=== PATIENT | female | born 1940 | race Caucasian/White ===

== ENCOUNTER 2016-09-18 09:56 | Inpatient (IN) ==
[2016-09-18] MEDS ORDERED: NS 1,000 ML IV ONE (10:01)
[2016-09-18] MEDS ORDERED: LASIX IV ONE ×2 (10:01→12:35)
[2016-09-18] MEDS ORDERED: VANCOMYCIN 1 GM/NS 250 ML IV ONE (10:01)
--- NOTE | 2016-09-18 10:04 | PROVIDER DOCUMENTATION ---
HPI-Respiratory General - General Source: patient Unable to obtain history due to:: urgency - History of Present Illness-Resp Onset/Duration: reports: 1/2 hour ago Timing: reports: still present Cough Quality/Degree: reports: no cough Episode Frequency: no prior episodes Modifying Factors: improves with: oxygen Similar Symptoms Previously?: No Recently seen or treated by another doctor?: No <Samnatha Quezada - Last Filed: 09/18/16 09:58> <Leon Venegas - Last Filed: 09/18/16 10:50> - General Stated Complaint: respiratory arrest Time Seen by Provider: 09/18/16 09:58 Allergies/Adverse Reactions: Patient Allergies Allergy/AdvReac Type Severity Reaction Status Date / Time No Known Allergies Allergy Verified 08/06/16 17:40 Home Medications: Albuterol Sulfate Inhaler [Ventolin Hfa] 2 puff INH [id number] 10/20/12 Paroxetine HCl [Paxil] 40 mg PO DAILY 10/20/12 Tiotropium Dickerson Inhaler [Spiriva] 1 puff INH RTDAILY 10/20/12 Levothyroxine [Synthroid] 137 microgm PO DAILY 11/04/15 Furosemide [Lasix] 40 mg PO DAILY 03/20/16 - History of Present Illness-Resp Nature of Presenting Problem: Pt is a 76 yof who came to the ED via EMS from [facility]. Pt was in respiratory arrest for 45 minutes before EMS got there. Pt was taking shallow breaths. Pt has a port on the upper right side of her chest. Pt has a rash on her chest and right breast. (Samantha Quezada) Review of Systems - Adult - REVIEW OF SYSTEMS - ADULT Constitutional: denies: chills, fever Eyes: denies: blurred vision Ears, Nose, Mouth & Throat: denies: nose pain, loose teeth Cardiovascular: reports: edema, heart murmur. denies: irregular heart rate, orthopnea, poor circulation Respiratory: reports: shortness of breath. denies: chronic cough, dyspnea on exertion, hemoptysis Gastrointestinal: denies: difficulty swallowing, frequent heartburn Genitourinary: reports: no symptoms reported Musculoskeletal: reports: no symptoms reported Integumentary: reports: no symptoms reported Neurological: reports: no symptoms reported Psychiatric: reports: no symptoms reported Endocrine: reports: no symptoms reported Hematologic/Lymphatic: reports: no symptoms reported Allergic/Immunologic: reports: no symptoms reported All Other Systems: Reviewed and Negative <Samantha Quezada - Last Filed: 09/18/16 09:58> Past History - Adult - PAST MEDICAL HISTORY-ADULT Major Childhood Illnesses: reports: denies history Cardiovascular: reports: A-Fib, CHF, HTN Respiratory: reports: COPD Gastrointestinal: reports: GERD Obstetrical/Gynecological: reports: denies history Genitourinary: reports: denies history Musculoskeletal: reports: denies history Neurological: reports: denies history Psychiatric: reports: anxiety Endocrine/Immune: reports: thyroid disorder Other Conditions: reports: denies history - PRIOR SURGERIES/PROCEDURES Surgical/Procedure History: reports: cholecystectomy, hysterectomy, joint replacement - IMMUNIZATION STATUS Childhood Immunizations: See Nurse Assessment Flu Vaccine: See Nurse Assessment - FAMILY HISTORY Family History: reviewed, not pertinent <Samantha Quezada Last Filed: 09/18/16 09:58> Physical Exam-General - PHYSICAL EXAM-ADULT Initial Vital Signs Reviewed: Yes - CONSTITUTIONAL General Appearance: mild distress, cachetic - EYES Eyes: PERRL/EOMI, pink conjunctivae, other (pupils fixed midrange) - HEAD, EARS, NOSE, MOUTH & THROAT HENMT: normocephalic/atraumatic, moist mucous membranes, normal ENT inspection - NECK Neck: non-tender, full range of motion, normal inspection - RESPIRATORY Respiratory: chest non-tender, normal breath sounds, rhonchi - CARDIOVASCULAR Cardiovascular: normal peripheral pulses, regular rate, rhythm, no edema - GASTROINTESTINAL (ABDOMEN) Abdominal Exam: normal bowel sounds, non tender, soft - LYMPHATIC Lymphatic: no adenopathy - MUSCULOSKELETAL Back Exam: normal inspection, no CVA tenderness, no vertebral tenderness Extremity: normal gait, pedal edema (1 + edema in legs. Edema in left arm) - SKIN Integumentary: warm/dry, rash (right side of chest), swelling - NEUROLOGIC Neurologic: grossly normal, no motor/sensory deficits - PSYCHIATRIC Psych/Mental Status: disoriented x 3 <Samantha Quezada - Last Filed: 09/18/16 09:58> Progress <Samantha Quezada Last Filed: 09/18/16 09:58> - REASSESSMENT Reassessment #1 Time Reassessed: 10:33 (ABG shows significant respiratory acidsosis with CO2 retention and over-oxygenation. Will decrease the FiO2 and increase the rate on BiPAP. Will need admission) Status: improving - EKG 1 Time of EKG reading by physician:: 10:34 EKG Read and Signed by:: Leon Venegas EKG Interpretation (*Must complete 3 of following elements*): Abnormal Rate: 91 Rhythm: nsr Junction: normal QRS: other (low voltage, poor r-wave progression) ND Interval: normal ST Wave: non-specific ST changes Prior EKG Comparison: no prior EKG Comments: artifact present - XRAY 1 XRAY Study: Chest Impression: Abnormal (CM with pulmonary edema, bilateral pleural effusions, right worse than left and pulmonary edema.), See EMR Report Comparison with other Films: changes noted - CONSULTS/PCP/HOSPITALIST Notification #1 *Consult/PCP/Hospitalist*: Hospitalist on duty paged for admission at 1032 Time Discussed: 10:48 Reason/Comments: Dr. Manuel will see patient Consult Disposition: Will see in ED <Leon Venegas - Last Filed: 09/18/16 10:50> - PLAN OF CARE/RESULTS Progress/Plan/Lab Results: Laboratory Results 09/18/16 09/18/16 09/18/16 10:00 10:00 10:00 WBC 20.61 H RBC 4.33 Hgb 12.6 Hct 43.1 MCV 99.5 H MCH 29.1 MCHC 29.2 L RDW Std Deviation 14.9 H Plt Count 342 MPV 9.2 Immature Gran % (Auto) 1.1 H Neut % (Auto) 72.9 Lymph % (Auto) 21.7 [place] % (Auto) 3.8 Eos % (Auto) 0.3 Baso % (Auto) 0.2 Immature Gran # (Auto) 0.22 H Neut # 15.03 H Lymph # 4.48 H [place] # 0.78 H Eos # 0.06 Baso # 0.04 PT 21.8 H INR 2.04 Specimen Type Sample Site pH pCO2 pO2 HCO3 Base Excess Oxyhemoglobin ABG O2 Sat (Calculated) ABG O2 Saturation ABG Carboxyhemoglobin ABG Methemoglobin Luther Test A-a O2 Difference Total Hemoglobin Lactate Blood Gas Modality FiO2 % Inspiratory BiPAP Expiratory BiPAP Sodium 138 Potassium 4.4 Chloride 89 L Carbon Dioxide 40 H Anion Gap 9 BUN 20 Creatinine 0.7 Estimated GFR/1.73 m2 > 60 BUN/Creatinine Ratio 29 Glucose 197 H Calculated Osmolality 284 Calcium 8.6 L Total Bilirubin 0.15 L AST 37 H ALT 18 Alkaline Phosphatase 111 H Troponin T Total Protein 5.8 L Albumin 3.0 L Globulin 2.8 Albumin/Globulin Ratio 1.1 Plasma Lactate Urine Source Urine Color Urine Turbidity Urine pH Ur Specific [place] Urine Protein Ur Glucose (Stick) Ur Ketones (Stick) Urine Blood Urine Nitrite Urine Bilirubin Urobilinogen Dipstick Urine Leukocytes Urine WBC (Auto) Urine RBC (Auto) U Epithel Cells (Auto) Urine Bacteria (Auto) 09/18/16 09/18/16 09/18/16 10:00 10:04 10:08 WBC RBC Hgb Hct MCV MCH MCHC RDW Std Deviation Plt Count MPV Immature Gran % (Auto) Neut % (Auto) Lymph % (Auto) [place] % (Auto) Eos % (Auto) Baso % (Auto) Immature Gran # (Auto) Neut # Lymph # [place] # Eos # Baso # PT INR Specimen Type Sample Site pH pCO2 pO2 HCO3 Base Excess Oxyhemoglobin ABG O2 Sat (Calculated) ABG O2 Saturation ABG Carboxyhemoglobin ABG Methemoglobin Luther Test A-a O2 Difference Total Hemoglobin Lactate Blood Gas Modality FiO2 % Inspiratory BiPAP Expiratory BiPAP Sodium Potassium Chloride Carbon Dioxide Anion Gap BUN Creatinine Estimated GFR/1.73 m2 BUN/Creatinine Ratio Glucose Calculated Osmolality Calcium Total Bilirubin AST ALT Alkaline Phosphatase Troponin T < 0.010 Total Protein Albumin Globulin Albumin/Globulin Ratio Plasma Lactate 1.6 Urine Source CATH Urine Color ORANGE Urine Turbidity TURBID Urine pH 6.0 Ur Specific [place] 1.026 Urine Protein 100 A Ur Glucose (Stick) NEGATIVE Ur Ketones (Stick) NEGATIVE Urine Blood LARGE A Urine Nitrite NEGATIVE Urine Bilirubin NEGATIVE Urobilinogen Dipstick NORMAL Urine Leukocytes LARGE A Urine WBC (Auto) TNTC A Urine RBC (Auto) TNTC A U Epithel Cells (Auto) <10 Urine Bacteria (Auto) NEGATIVE 09/18/16 10:15 WBC RBC Hgb Hct MCV MCH MCHC RDW Std Deviation Plt Count MPV Immature Gran % (Auto) Neut % (Auto) Lymph % (Auto) [place] % (Auto) Eos % (Auto) Baso % (Auto) Immature Gran # (Auto) Neut # Lymph # [place] # Eos # Baso # PT INR Specimen Type ARTERIAL Sample Site R RADIAL pH 7.12 L* pCO2 143 H* pO2 217 H HCO3 34.1 H Base Excess 11.8 H Oxyhemoglobin 95.6 ABG O2 Sat (Calculated) 17.8 ABG O2 Saturation 100.3 H ABG Carboxyhemoglobin 2.80 H ABG Methemoglobin 2.0 H Luther Test YES A-a O2 Difference 317.0 Total Hemoglobin 12.9 Lactate 1.30 Blood Gas Modality BI PAP FiO2 % 100.0 Inspiratory BiPAP 18.0 Expiratory BiPAP 6.0 Sodium Potassium Chloride Carbon Dioxide Anion Gap BUN Creatinine Estimated GFR/1.73 m2 BUN/Creatinine Ratio Glucose Calculated Osmolality Calcium Total Bilirubin AST ALT Alkaline Phosphatase Troponin T Total Protein Albumin Globulin Albumin/Globulin Ratio Plasma Lactate Urine Source Urine Color Urine Turbidity Urine pH Ur Specific [place] Urine Protein Ur Glucose (Stick) Ur Ketones (Stick) Urine Blood Urine Nitrite Urine Bilirubin Urobilinogen Dipstick Urine Leukocytes Urine WBC (Auto) Urine RBC (Auto) U Epithel Cells (Auto) Urine Bacteria (Auto) Orders Category Date Time Status Saline Loc NOW Care 09/18/16 09:58 Active CHEST-PORTABLE [RAD] Stat Exams 09/18/16 10:00 Draft ABG [RESP] Routine Lab 09/18/16 10:15 Completed BLOOD CULTURE [BLDCUL] Stat Lab 09/18/16 10:05 Received CBC WITH ELECTRONIC DIFF [HEME] Stat Lab 09/18/16 10:00 Completed COMPREHENSIVE METABOLIC PANEL [CHEM] Stat Lab 09/18/16 10:00 Completed DIRECT STREP Stat Lab 09/18/16 10:18 Received INFLUENZA SCREEN A/B Stat Lab 09/18/16 10:18 Received LACTATE, PLASMA [CHEM] Stat Lab 09/18/16 10:08 Completed PRO B-NATRIURETIC PEPTIDE Stat Lab 09/18/16 10:00 Received PROTIME WITH INR [COAG] Stat Lab 09/18/16 10:00 Completed SPUTUM CULTURE WITH GRAM STAIN [RM] Stat Lab 09/18/16 10:00 Uncollected TROPONIN T Stat Lab 09/18/16 10:00 Completed URINALYSIS W/POSS RFLX CULT [URINALYSIS] Stat Lab 09/18/16 10:04 Completed URINE CULTURE [RM] Routine Lab 09/18/16 10:40 Received 0.9% Sodium Chloride Inj [Ns] 1,000 ml Med 09/18/16 10:37 Discontinued .ROUTE As Directed 0.9% Sodium Chloride Inj [Ns] 1,000 ml Med 09/18/16 10:01 Active IV 999 mls/hr Furosemide [Lasix] Med 09/18/16 10:01 Discontinued 80 mg IV NOW ONE Vancomycin 1 gm/Ns 250 ml Med 09/18/16 10:01 Active IV NOW BIPAP Stat Oth 09/18/16 09:58 Active EKG [EKG] Stat Ther 09/18/16 09:59 Ordered Orders Category Date Time Status Saline Loc NOW Care 09/18/16 09:58 Active CHEST-PORTABLE [RAD] Stat Exams 09/18/16 10:00 Draft ABG [RESP] Routine Lab 09/18/16 10:15 Completed BLOOD CULTURE [BLDCUL] Stat Lab 09/18/16 10:05 Received CBC WITH ELECTRONIC DIFF [HEME] Stat Lab 09/18/16 10:00 Completed COMPREHENSIVE METABOLIC PANEL [CHEM] Stat Lab 09/18/16 10:00 Completed DIRECT STREP Stat Lab 09/18/16 10:18 Received INFLUENZA SCREEN A/B Stat Lab 09/18/16 10:18 Received LACTATE, PLASMA [CHEM] Stat Lab 09/18/16 10:08 Completed PRO B-NATRIURETIC PEPTIDE Stat Lab 09/18/16 10:00 Received PROTIME WITH INR [COAG] Stat Lab 09/18/16 10:00 Completed SPUTUM CULTURE WITH GRAM STAIN [RM] Stat Lab 09/18/16 10:00 Uncollected TROPONIN T Stat Lab 09/18/16 10:00 Completed URINALYSIS W/POSS RFLX CULT [URINALYSIS] Stat Lab 09/18/16 10:04 Completed URINE CULTURE [RM] Routine Lab 09/18/16 10:40 Received 0.9% Sodium Chloride Inj [Ns] 1,000 ml Med 09/18/16 10:37 Discontinued .ROUTE As Directed 0.9% Sodium Chloride Inj [Ns] 1,000 ml Med 09/18/16 10:01 Active IV 999 mls/hr Furosemide [Lasix] Med 09/18/16 10:01 Discontinued 80 mg IV NOW ONE Vancomycin 1 gm/Ns 250 ml Med 09/18/16 10:01 Active IV NOW BIPAP Stat Oth 09/18/16 09:58 Active EKG [EKG] Stat Ther 09/18/16 09:59 Ordered Vital Signs 09/18/16 09:56 Temperature 97.4 F L Pulse Rate 96 H Respiratory 28 H Rate Blood Pressure 160/92 O2 Sat by Pulse 96 Oximetry (Leon Venegas) Departure <Samantha Quezada - Last Filed: 09/18/16 09:58> - Departure Time of Disposition Order: 10:36 Certified Medical Emergency: Emergent - Critical Care Note Total Time (mins): 45 Critical Care Statement: This patient required my direct personal management to treat or rule out processes, the absence of which, could potentiallly result in sudden, clinically significant life or limb threatening deterioration. <Leon Venegas - Last Filed: 09/18/16 10:50> - Departure DIAGNOSIS: Respiratory acidosis, DNR (do not resuscitate) Respiratory failure Qualifiers: Chronicity: acute Respiratory failure complication: hypercapnia Qualified Code( s): J96.02 - Acute respiratory failure with hypercapnia CHF (congestive heart failure) Qualifiers: Congestive heart failure type: combined Congestive heart failure chronicity: acute on chronic Qualified Code(s): I50.43 - Acute on chronic combined systolic (congestive) and diastolic (congestive) heart failure UTI (urinary tract infection) due to urinary indwelling Alexandra catheter Qualifiers: Indwelling urinary catheter type: indwelling urethral catheter Encounter type: initial encounter Qualified Code(s): T83.511A - Infection and inflammatory reaction due to indwelling urethral catheter, initial encounter Disposition: ADMITTED INPATIENT 09 Condition: Serious Referrals: None,PCP [Primary Care Provider] - Attestation - Scribe Verification/Attestation Scribe:: Samantha Quezada Acting as Scribe for:: Leon Venegas Scribe documention review:: This chart was documented by a scribe and accurately reflects the service the provider performed and the decisions made by the provider. <Samantha Quezada - Last Filed: 09/18/16 09:58> Physician Attestation - Physician Attestation I, the provider, attest to the following statement:: Samantha Quezada Physician documentation Attestation:: This documentation recorded by the scribe accurately reflects the service I personally performed and the decisions made by me. <Leon Venegas - Last Filed: 09/18/16 10:50>
[2016-09-18 10:14] LABS: URINE MICRO REVIEW NEEDED? NO; URINE SOURCE CATH
[2016-09-18 10:19] LABS: ALLEN TEST YES; BE 11.8 mmoll (-3.0-3.0); BLOOD TYPE ARTERIAL; DRAW SITE R RADIAL; O2(CT) 17.8 mL/dL (15.0-23.0); PO2(98.6) 217 mmHg (60-100); SAMPLE BLOOD; SAO2 100.3 % (95.0-100.0); THB 12.9 g/dL (11.5-17.4)
[2016-09-18 10:23] LABS: MODALITY BI PAP; PCO2(98.6) 143 mmHg (35-45); pH(98.6) 7.12 (7.35-7.45)
[2016-09-18 10:30] LABS: INR 2.04; PROTIME 21.8 Seconds (9.2-11.7)
[2016-09-18 10:32] LABS: BASO% 0.2 % (0.0-0.8); EOS# 0.06 X1000 (0.0-0.7); EOS% 0.3 % (0.0-10.0); HEMATOCRIT 43.1 % (37.0-47.0); HEMOGLOBIN 12.6 g/dL (12.0-16.0); IMM GRAN# 0.22 X1000 (0.0-0.04); IMM GRAN% 1.1 % (0.0-0.5); LYMPH# 4.48 X1000 (1.2-3.4); LYMPH% 21.7 % (20.5-51.1); MANUAL DIFF NEEDED? NO; MCH 29.1 PG (27-31); MCHC 29.2 g/dL (33-37); MCV 99.5 FL (81-99); MONO# 0.78 X1000 (0.11-0.59); MONO% 3.8 % (1.7-9.3); MPV 9.2 FL (7.4-10.4); NEUT% 72.9 % (42.2-75.2); PLT 342 X1000 (130-400); RBC 4.33 XMIL (4.2-5.4)
[2016-09-18 10:33] LABS: BILIRUBIN URINE NEGATIVE (NEGATIVE); BLOOD URINE LARGE (NEGATIVE); COLOR ORANGE; GLUCOSE URINE NEGATIVE (NEGATIVE); LEUKOCYTES URINE LARGE (NEGATIVE); NITRITE URINE NEGATIVE (NEGATIVE); PROTEIN URINE 100 mg/dL (NEGATIVE); SP GRAVITY URINE 1.026; TURBIDITY URINE TURBID (CLEAR); UROBILINOGEN URINE NORMAL (NORMAL)
[2016-09-18] MEDS ORDERED: NS 1,000 ML ONE (10:37)
[2016-09-18 10:39] LABS: URINE RBC TNTC /HPF (<10); URINE WBC TNTC /HPF (<10)
[2016-09-18 10:40] LABS: UR EPITHELIAL CELLS <10 /HPF (<10); URINE BACTERIA NEGATIVE /HPF; URINE CULTURE NEEDED? YES
--- NOTE | 2016-09-18 10:42 | Diag Imaging Result Document ---
PROCEDURE NAME: CHEST-PORTABLE - 09/18/2016 PORTABLE CHEST: COMPARISON: Compared to 09/04/2016. FINDINGS: No change in the right-sided [id number]. There are dense bilateral infiltrates. These are more pronounced than on the prior exam. There are moderate sized bilateral pleural effusions. The heart is enlarged and there is central vascular distension. IMPRESSION: Overall worsening with pleural effusions, pulmonary edema, and cardiomegaly.
[2016-09-18 10:48] LABS: AGAP 9; ALKALINE PHOSPHATASE 111 U/L (32-104); BUN 20 mg/dL (8-22); CALCIUM 8.6 mg/dL (8.8-10.2); CHLORIDE 89 mmol/L (98-107); COSMO 284; GOT 37 U/L (10-30); GPT 18 U/L (10-36); POTASSIUM 4.4 mmol/L (3.5-5.1); SODIUM 138 mmol/L (136-145); TCO2 40 mmol/L (25-35); TOTAL BILIRUBIN 0.15 mg/dL (0.20-1.00); TOTAL PROTEIN 5.8 g/dL (6.3-8.3)
[2016-09-18] MEDS ORDERED: VANCOMYCIN IV PER PHARMACY MISC SCH (12:17)
[2016-09-18] MEDS ORDERED: DUONEB (A & A) INH PRN (12:17)
[2016-09-18] MEDS ORDERED: ZOFRAN IV PRN (12:17)
--- NOTE | 2016-09-18 12:39 | HISTORY AND PHYSICAL ---
HISTORY OF PRESENT ILLNESS: This is a 76-year-old who has been admitted a couple times in the last month and a half here at the hospital with similar problems. She has underlying COPD, on chronic O2. She presented here because of low oxygenation, decreased responsiveness. Her underlying past medical history is COPD, oxygen dependent, gastroesophageal reflux disease, history of atrial fib, congestive heart failure which I believe is mainly right ventricular dysfunction and diastolic dysfunction, and hypertension. She was at [facility]. Her O2 saturations dropped, harder to arouse, and was sent here. PAST MEDICAL HISTORY: Review again: 1. Hypertension. 2. COPD, chronic CO2 retention, chronic hypoxemia on home O2. 3. Chronic atrial fibrillation. 4. Congestive heart failure and the note was systolic being chronic with her left ventricular dysfunction and lower extremity edema. We will look at the echo. She has pulmonary venous hypertension. 5. Has a history left breast cancer stage IV which has been treated, with chronic lymphedema in the left arm. Dr. Harmon is her oncologist. Chronic venous stasis of the left arm and dermatosis with eczematous changes, as well as some soft tissue nodules that are from her left wrist all the way up to her left breast with some skin discoloration. PAST SURGICAL HISTORY: History of cholecystectomy. SOCIAL HISTORY: She has been at [facility] recently. Her daughter states she is a no code. Used to smoke greater than pack a day. She is on oxygen now. Denies alcohol or illicit drugs in previous reports. FAMILY HISTORY: Noncontributory. ALLERGIES: No known drug allergies. CURRENT MEDICATIONS: I will review. REVIEW OF SYSTEMS: She is not able to give at the present time. She is on BiPAP. PHYSICAL EXAMINATION: VITAL SIGNS: Temperature 97.4 degrees, pulse 84, respirations 28, blood pressure 150/90. Weight 159 pounds. Height 5 feet 5 inches. HEENT: Pupils were equal. NECK: CVP appears to be about 10 cm water pressure from the angle of Devin. LUNGS: With scattered rhonchi. Prolonged expiratory phase. ABDOMEN: Soft, nontender. EXTREMITIES: Without clubbing, cyanosis, or edema. LAB: White count 20,610, hematocrit 43, platelet count 342,000. Sodium 138, potassium 4.4, chloride 89, bicarb 40, BUN 20, creatinine 0.7, blood sugar 197. Transaminases unremarkable. Albumin is 3.0. Protime was 21. Urine was clear. Blood gases on arrival, pH was 7.12, pCO2 143, PO2 was 217 and this was on 100% BiPAP, I think shortly after she was on 100% BiPAP at 18 inspiratory, 6 expiatory. X-ray: Overall worsening of pleural effusion, pulmonary edema, cardiomegaly. Review of her last echocardiogram which was done in October of this year, interventricular septal and wall less than 1 cm. Estimated ejection fraction at that time 65 to 70%. There is mild mitral regurgitation. Mild tricuspid regurgitation and pulmonary pressures of 60 mmHg. Mild left atrial enlargement. Aortic valve mildly sclerosed. Otherwise operating normally. ASSESSMENT AND PLAN: 1. Carbon dioxide retention, hypoxemia, chronic obstructive pulmonary disease with exacerbation, complicated by pulmonary hypertension. We will try and diurese some of her volume off. Cannot rule out infection. We will put her on empiric antibiotic and give her some breathing treatments and bronchodilators. 2. Breast cancer. Treated by Dr. Harmon. She is metastatic stage IV, ER positive, HER2 positive with left upper extremity lymphedema. She was on Herceptin and Femara. I am not sure when her last dose was obtained. Will ask Dr. Harmon to help with following and evaluation. 3. Left upper extremity lymphedema which appears worse. I think maybe will help with diuresis. 4. Chronic atrial fibrillation. 5. She really does not have systolic congestive heart failure in looking at echo but she does have pulmonary hypertension consistent with cor pulmonale and COPD. 6. Deep venous thrombosis. She is on Coumadin. 7. Nutrition. I am not sure how she has been doing on that. She does not appear to have lost a lot of weight but this is probably offset by the fact that she has fluid weight, increased extracellular fluid volume.
[2016-09-18] MEDS: DUONEB (A & A) INH SCH ×4 (13:00→23:58)
[2016-09-18] MEDS: SODIUM CHLORIDE 0.9% INJ SCH (13:36)
[2016-09-18] MEDS: LEVAQUIN 500 MG/D5W 100 ML IV SCH ×2 (13:36→13:48)
[2016-09-18] MEDS: PROTONIX IV SCH (13:36)
[2016-09-18] MEDS: SANTYL OINT TOP SCH (13:57)
[2016-09-18] MEDS ORDERED: VANCOMYCIN 800 MG in NS 250 ML IV ONE (14:00)
--- NOTE | 2016-09-18 14:11 | EKG Report ---
Test Performed on : 09/18/2016 10:00:07 AM Test Reason : Chest Pain Blood Pressure : / mmHG Vent. Rate : 091 BPM Atrial Rate : 091 BPM P-R Int : 122 ms QRS Dur : 074 ms QT Int : 318 ms P-R-T Axes : 043 039 070 degrees QTc Int : 391 ms Normal sinus rhythm. Low voltage QRS Borderline ECG When compared with ECG of 27-AUG-2016 11:31, premature atrial complexes. are no longer present QT has shortened Unconfirmed Result
--- NOTE | 2016-09-18 14:55 | CONSULTATION ---
DATE OF CONSULTATION: 09/18/2016 REASON FOR CONSULTATION: Respiratory failure. HISTORY: Patient is a 76-year-old female with multiple comorbidities, including stage IV metastatic breast cancer, significant COPD and history of atrial fibrillation. The patient presents with progressive respiratory decline, decreased mentation and increased CO2 retention. Upon presentation, patient had a pH of 7.12 with pCO2 of 143 and bicarbonate of 34. PAST MEDICAL HISTORY: Again, patient has metastatic breast cancer stage IV. She has been on chemotherapeutic agents. Recent CT of the thorax, however, would indicate the possibility of extensive interstitial spread of disease, as well as extensive adenopathy. Patient has a history of atrial fibrillation which by report is chronic, however patient is in sinus rhythm, making this most likely paroxysmal. Per report, patient has a history of heart failure. However, I think this is probably misdiagnosis. The patient has preserved systolic function on echocardiography, as well as recent MUGA scan. The patient does have significant chronic obstructive pulmonary disease and most likely has significant pulmonary hypertension associated with her underlying lung disease, as well as metastatic disease within the chest. SURGICAL HISTORY: Patient has a history of cholecystectomy. SOCIAL HISTORY: Patient currently is residing at [facility]. She has been assigned do not resuscitate status. She has previous smoking history of up to 1 pack per day. She denies alcohol or illicit drug use. FAMILY HISTORY: Noncontributory. REVIEW OF SYSTEMS: General: She has been in declining health she does not appear to have any fevers at this time. HEENT: Denies overt headache. Chest: Denies chest pain. Abdomen: Denies abdominal pain. Extremities: She has chronic lymphedematous swelling of the left upper extremity. She has mild swelling of the lower extremities. Neurological: There is no history of seizures, syncope, or stroke. PHYSICAL EXAMINATION: General: This is a well-developed, elderly female. She is not completely oriented, but does answer simple questions. She is currently wearing BiPAP. HEENT: Exam is otherwise benign. Neck: Supple. Chest: Bilateral breath sounds, which are substantially decreased bilateral. Cardiovascular: Reveals a regular rate and rhythm, slightly tachycardic. Heart sounds are faint. There is extensive fulminating metastatic disease noted within the left breast and chest area. There is significant edema of the left upper extremity with orange peel appearance of the dermal area within the left upper extremity. Abdomen: Positive bowel sounds. Nontender, nondistended. There is no organomegaly. Extremities: There is no trivial edema within the lower extremities. Patient has thready, but palpable pulses. DIAGNOSTIC DATA: I reviewed an EKG today indicating sinus rhythm with a first degree heart block. Laboratory work has been fully reviewed. White count 20, hemoglobin and hematocrit 12 and 43, platelet count is 342. The pH currently is 7.21 with a pCO2 of 143, PO2 of 217. Sodium 138, potassium 4.4, chloride 89, BUN 20, creatinine 0.7, and troponin is less than 0.01. AST 37, ALT 18 and calcium 8.6. IMPRESSION: 1. Respiratory failure. This appears most likely secondary to respiratory depression secondary to severe underlying chronic obstructive pulmonary disease on top of metastatic disease within the chest. I do not believe this is related to systolic congestive heart failure and also most likely not related to diastolic heart issues. It is not unreasonable to diurese patient gently, however. Patient is currently on BiPAP. Again, do not resuscitate status has been assigned. The patient's intermediate term prognosis is poor. I agree with comfort measures. 2. Metastatic breast cancer. 3. History of paroxysmal atrial fibrillation.
[2016-09-18] MEDS: ATIVAN PO PRN ×2 (15:07→20:22)
[2016-09-18] MEDS ORDERED: DULCOLAX PR ONE (17:50)
[2016-09-18] MEDS: LASIX IV SCH (20:22)
--- NOTE | 2016-09-18 20:51 | CONSULTATION ---
DATE OF CONSULTATION: 09/18/2016 REQUESTING PHYSICIAN: Dr. Leiva. REASON FOR CONSULTATION: Respiratory failure. HISTORY OF PRESENT ILLNESS: Ms. Lund is a 76-year-old white female with severe COPD, stage IV breast cancer, who was discharged from hospital 09/04/2016 after an 8-day admission with a COPD exacerbation. Patient improved with steroids and antibiotics but a urine culture did reveal enterococcus faecalis. CT scan during that admission revealed extensive hilar lymphadenopathy and mediastinal adenopathy with new lung masses. The patient was brought to the emergency room today with a respiratory arrest and was placed on BiPAP. She is a DO NOT RESUSCITATE. Arterial blood gas on presentation revealed pH 7.12, pCO2 of 143, PO2 of 117. Her mental status has slowly improved while on BiPAP. PAST MEDICAL HISTORY/PROBLEM LIST: 1. Stage IV breast cancer. 2. End-stage COPD with prior tobacco use. 3. History of atrial fibrillation. 4. Pulmonary hypertension. 5. Status post cholecystectomy. SOCIAL HISTORY: Extensive tobacco history. No alcohol use. She currently is living at [facility]. FAMILY HISTORY: Noncontributory to her current presentation. REVIEW OF SYSTEMS: Limited but she denies pain at this time. She does report anxiety. PHYSICAL EXAMINATION: General: Reveals a chronically ill-appearing, white female with mild increased work of breathing on the BiPAP machine. Vital signs: BP 122/73, heart rate 81, respiration rate 18, oxygen saturation 97%. HEENT: Pupils are equal reactive. Oropharynx is clear. Neck: Supple. Chest: Reveals markedly diminished breath sounds bilaterally. Cardiac Exam: Distant heart sounds. Normal S1, normal S2. Abdomen: Soft without hepatosplenomegaly. Extremities: Reveal extensive bruising on the right arm and forearm. There is extensive lymphedema of the left arm with too numerous to count cutaneous nodules. Her back reveals a stage III decubitus ulcer. Chest x-ray reveals dense bilateral infiltrates which are more pronounced along with cardiomegaly, central vascular distention, and pleural effusions. IMPRESSION: A 76-year-old with severe chronic obstructive pulmonary disease who presents with acute on chronic hypoxemic and hypercapnic respiratory failure, altered mental status which has improved with bi-level positive airway pressure ventilation, bilateral pleural effusions, pulmonary hypertension, decubitus ulcer, and worsening pulmonary masses. RECOMMENDATIONS: 1. Continue nebulizers, antibiotics and steroids as you are doing. 2. Diuresis as tolerated. 3. Agree with DO NOT RESUSCITATE level 1. 4. Patient's prognosis is extremely poor. She is a candidate for hospice which she has refused in the past to go to rehabilitation.
[2016-09-18] MEDS ORDERED: HALDOL IM ONE (22:14)
[2016-09-18] MEDS ORDERED: ATIVAN IM ONE (22:14)
[2016-09-19] MEDS: DUONEB (A & A) INH SCH ×6 (02:40→22:54)
[2016-09-19 04:58] LABS: ALLEN TEST YES; BE 14.5 mmoll (-3.0-3.0); BLOOD TYPE ARTERIAL; DRAW SITE R RADIAL; METHB 1.4 % (0.0-1.5); PO2(98.6) 73 mmHg (60-100); SAMPLE BLOOD; SAO2 96.5 % (95.0-100.0); THB 17.6 g/dL (11.5-17.4); pH(98.6) 7.41 (7.35-7.45)
[2016-09-19 05:00] LABS: MODALITY BI PAP
[2016-09-19 05:01] LABS: PCO2(98.6) 69 mmHg (35-45)
[2016-09-19 05:24] LABS: BASO% 0.1 % (0.0-0.8); EOS# 0.04 X1000 (0.0-0.7); EOS% 0.2 % (0.0-10.0); HEMATOCRIT 38.1 % (37.0-47.0); HEMOGLOBIN 11.7 g/dL (12.0-16.0); IMM GRAN% 0.5 % (0.0-0.5); LYMPH# 1.54 X1000 (1.2-3.4); LYMPH% 7.2 % (20.5-51.1); MANUAL DIFF NEEDED? YES; MCH 29.7 PG (27-31); MCHC 30.7 g/dL (33-37); MCV 96.7 FL (81-99); MONO# 1.51 X1000 (0.11-0.59); MONO% 7.1 % (1.7-9.3); MPV 9.4 FL (7.4-10.4); NEUT% 84.9 % (42.2-75.2); PLT 250 X1000 (130-400); RBC 3.94 XMIL (4.2-5.4)
[2016-09-19 06:25] LABS: AGAP 15; BUN 23 mg/dL (8-22); CALCIUM 8.1 mg/dL (8.8-10.2); CHLORIDE 91 mmol/L (98-107); COSMO 284; MAGNESIUM 1.9 mg/dL (1.5-2.7); POTASSIUM 3.7 mmol/L (3.5-5.1); SODIUM 141 mmol/L (136-145); TCO2 35 mmol/L (25-35)
--- NOTE | 2016-09-19 08:14 | Diag Imaging Result Document ---
PROCEDURE NAME: CHEST-PORTABLE - 09/19/2016 AP PORTABLE CHEST: TIME: 0445 hours. FINDINGS: There is some improvement in pneumatization of the right lower lobe and decreased pleural fluid volume. There continues to be interstitial and alveolar pulmonary edema and cardiomegaly. IMPRESSION: Improved right pleural effusion and basilar atelectasis.
[2016-09-19] MEDS: LASIX IV SCH ×2 (08:21→22:00)
[2016-09-19] MEDS: SANTYL OINT TOP SCH (08:21)
[2016-09-19 08:24] LABS: INR 2.13; PROTIME 22.7 Seconds (9.2-11.7)
[2016-09-19 09:19] LABS: LYMPHS 10 % (21-51); MONO 6 % (1-9)
[2016-09-19] MEDS: PROTONIX IV SCH (12:16)
[2016-09-19] MEDS: SODIUM CHLORIDE 0.9% INJ SCH (12:16)
[2016-09-19] MEDS: LEVAQUIN 500 MG/D5W 100 ML IV SCH (12:16)
[2016-09-19] MEDS: ATIVAN PO PRN (14:47)
--- NOTE | 2016-09-19 15:40 | PROGRESS NOTE ---
DATE: 09/19/2016 SUBJECTIVE: Yue Lund is breathing a little better. She is able to talk. She and she is oriented to person, place, and understanding what is going on. PHYSICAL EXAMINATION: Vital signs: Temperature 98.4 degrees, pulse 90, respirations 22, blood pressure 126/67. Lungs: Clear in all lung jaffe. Cardiovascular: Regular rate without murmur or S3. Abdomen: Soft. Skin: Warm and dry. Musculoskeletal: Left arm is swollen from the hand all the way up to her left shoulder. She has a nodular, what appears to be capillary nodules and lymphedema that is just diffuse with some erythema. Lower Extremities: Without swelling. LABORATORY: Today, white count still elevated to 21,390, hematocrit 38, platelet count 250,000. Chemistry, sodium 141, potassium 3.7, chloride 91, bicarb 35, BUN 23, creatinine 2.6. Her input and output, output has been 1680. IMAGING: Chest x-ray at this morning, improved right pleural effusion. Bibasilar atelectasis. ASSESSMENT AND PLAN: 1. Underlying chronic obstructive pulmonary disease and stage IV breast cancer, just discharged from the hospital on 09/04/2016 after an 8 day admission, chronic obstructive pulmonary disease exacerbation. Patient improved with steroids and antibiotics and diuresis. Urine culture did reveal enterococcus faecalis. CT scan no this admission showed hilar lymphadenopathy, mediastinal adenopathy with new lung masses, so we will continue nebulizers, antibiotics, steroids. She is No Code. 2. Diurese as tolerated. 3. Do Not Resuscitate level 1. Prognosis is poor. Nutrition is poor. She has a history of atrial fibrillation, hypertension. 4. Review of her orders, I do not see anything to change at this point. She is on vancomycin and Levaquin. Getting Lasix 40 mg IV q.12 hours. Protonix 40 mg IV q.24 hours. She has a sacral decubitus, we are putting Santyl ointment on topically twice a day.
[2016-09-19] MEDS: XANAX PO PRN (20:34)
[2016-09-20] MEDS: VANCOMYCIN 1,400 MG in NS 250 ML IV SCH (02:30)
[2016-09-20] MEDS: DUONEB (A & A) INH SCH ×6 (02:42→23:01)
[2016-09-20] MEDS: XANAX PO PRN ×2 (03:40→19:30)
[2016-09-20 04:28] LABS: ALLEN TEST YES; BLOOD TYPE ARTERIAL; DRAW SITE R RADIAL; METHB 1.9 % (0.0-1.5); O2(CT) 15.3 mL/dL (15.0-23.0); PO2(98.6) 76 mmHg (60-100); SAMPLE BLOOD; SAO2 97.2 % (95.0-100.0); THB 11.6 g/dL (11.5-17.4); pH(98.6) 7.53 (7.35-7.45)
[2016-09-20 04:29] LABS: MODALITY BI PAP
[2016-09-20 04:30] LABS: PCO2(98.6) 53 mmHg (35-45)
[2016-09-20 05:58] LABS: INR 1.6
[2016-09-20 06:07] LABS: AGAP 15; BUN 26 mg/dL (8-22); CALCIUM 8.2 mg/dL (8.8-10.2); CHLORIDE 90 mmol/L (98-107); COSMO 283; POTASSIUM 3.3 mmol/L (3.5-5.1); SODIUM 140 mmol/L (136-145); TCO2 35 mmol/L (25-35)
[2016-09-20] MEDS: SANTYL OINT TOP SCH (08:03)
[2016-09-20] MEDS: LASIX IV SCH ×2 (08:03→20:53)
--- NOTE | 2016-09-20 10:21 | PROGRESS NOTE ---
DATE: 09/20/2016 SUBJECTIVE: Ms. Lund is breathing much better. She is off the BiPAP, and she is alert and oriented to where she is in person. OBJECTIVE: General: On exam today, lungs still with scattered rhonchi, but is breathing comfortably. Does start panting a little bit when she talks. Vital Signs: Temp 98.2, pulse 91, respirations 20, blood pressure 125/94. Lungs: With scattered rhonchi as stated in lung jaffe. Cardiovascular: Regular rhythm and rate without murmurs or S3. Abdomen: Soft. Skin: Warm and dry. : Urine output 825 mL. LABS: White count still elevated at 21,390, hematocrit 38 and platelet count 250,000. Chemistry: Sodium 140, potassium 3.3, chloride 90, bicarbonate 35, BUN 26, creatinine 0.8, calcium 8.2. X-RAYS: Chest x-ray from the - and today revealed right pleural effusion and bibasilar atelectasis. ASSESSMENT AND PLAN: 1. Chronic obstructive pulmonary disease/stage IV breast cancer: Has had several admissions in the last couple of months here for volume overload and respiratory failure to see if we will be able to get her diuresed, and get her off the BiPAP and improving clinically. CT scan showed hilar lymphadenopathy, mediastinal adenopathy and new lung masses. So, continue present antibiotic. Will treat her for pneumonia as well. Continue diuresis for volume overload with left ventricular diastolic dysfunction and right ventricular failure. 2. Nutrition: Poor oral intake. Dr. Sarah Pike is following her as well, and she has systolic congestive heart failure as well as diastolic heart failure and right heart dysfunction. She seems to be responding to diuresis. She also has a history of paroxysmal atrial fibrillation. 3. Sacral decubitus. Treating with collagenase or Santyl ointment. 4. She has underlying stage IV breast cancer. 5. Left arm chronic lymphedema. Review of her orders: I do not see any change. She is getting Lasix 40 mg b.i.d. IV and gets Protonix 40 mg daily, some vancomycin.
[2016-09-20] MEDS: KLOR-CON PO SCH ×2 (10:36→20:52)
--- NOTE | 2016-09-20 11:13 | Diag Imaging Result Document ---
PROCEDURE NAME: CHEST-PORTABLE - 09/20/2016 PORTABLE AP CHEST: FINDINGS: Compared to 09/19/2016. No change in the right-sided catheter. No pneumothorax. There are dense infiltrates in the mid and lower lungs. Overall these may be slightly less dense than the prior exam. I believe there are small pleural effusions. The heart remains enlarged. IMPRESSION: Mild interval improvement.
[2016-09-20] MEDS: LEVAQUIN 500 MG/D5W 100 ML IV SCH (11:29)
[2016-09-20] MEDS: PROTONIX IV SCH (11:29)
[2016-09-20] MEDS: SODIUM CHLORIDE 0.9% INJ SCH (11:29)
[2016-09-20] MEDS: NORCO-5 PO PRN (23:20)
[2016-09-21] MEDS: DUONEB (A & A) INH SCH ×6 (03:27→23:06)
[2016-09-21 06:54] LABS: INR 1.26; PROTIME 13.4 Seconds (9.2-11.7)
[2016-09-21 07:07] LABS: AGAP 10; BUN 23 mg/dL (8-22); CHLORIDE 94 mmol/L (98-107); COSMO 287; MAGNESIUM 1.9 mg/dL (1.5-2.7); POTASSIUM 3.5 mmol/L (3.5-5.1); SODIUM 142 mmol/L (136-145); TCO2 38 mmol/L (25-35)
[2016-09-21] MEDS: KLOR-CON PO SCH ×2 (08:57→20:12)
[2016-09-21] MEDS: SANTYL OINT TOP SCH (08:57)
[2016-09-21] MEDS: LASIX IV SCH ×2 (08:57→20:13)
[2016-09-21] MEDS: NORCO-5 PO PRN ×3 (09:38→20:55)
--- NOTE | 2016-09-21 10:15 | PROGRESS NOTE ---
DATE: 09/21/2016 SUBJECTIVE: Ms. Lund is awake and off the BiPAP breathing better and feels better. OBJECTIVE: Vital Signs: Temp 98 degrees, pulse 76, respirations 16, blood pressure 103/51. Lungs: Clear in all lung jaffe with decreased breath sounds both bases anterolaterally. Cardiovascular: Regular rate without murmur or S3. Abdomen: Soft. : Urine output from yesterday was 800-900 mL. LABS: Reviewed. Elevated white count still from the . We will repeat those tomorrow. Hematocrit 38. Chemistries: Sodium 142, potassium 3.5, chloride 94, BUN 23, creatinine 0.8. Chest x-ray from yesterday: Mild interval improvement. Her urine output course of yesterday 835. ASSESSMENT AND PLAN: 1. Chronic obstructive pulmonary disease. 2. Stage IV breast cancer. 3. She continues to improve with diuresis. I have talked to the daughter. She would like her to come home with hospice. 4. CT scan showed hilar lymphadenopathy, mediastinal adenopathy and new lung masses appreciated. 5. Poor p.o. intake. But I think this is improving, as she has been able to breathe better. She does have systolic and diastolic heart failure. 6. Sacral decubitus. Continue topical care. 7. Chronic venous stasis and chronic lymphedema in the left arm, really from her hand all the way up to her left shoulder. Reviewed orders. I do not see any changes at this point. Continue the vancomycin. Continue the Levaquin. She is still getting Lasix IV 40 mg twice a day.
[2016-09-21] MEDS: SODIUM CHLORIDE 0.9% INJ SCH (12:18)
[2016-09-21] MEDS: LEVAQUIN 500 MG/D5W 100 ML IV SCH (12:18)
[2016-09-21] MEDS: PROTONIX IV SCH (12:18)
[2016-09-21] MEDS: VANCOMYCIN 1,400 MG in NS 250 ML IV SCH (15:00)
[2016-09-21] MEDS: XANAX PO PRN (20:48)
[2016-09-22] MEDS: DUONEB (A & A) INH SCH ×6 (03:12→22:43)
[2016-09-22 06:58] LABS: INR 1.21; PROTIME 12.9 Seconds (9.2-11.7)
[2016-09-22] MEDS: NORCO-5 PO PRN ×2 (08:32→21:38)
[2016-09-22] MEDS: KLOR-CON PO SCH ×2 (08:33→21:38)
[2016-09-22] MEDS: LASIX IV SCH ×2 (08:33→21:38)
[2016-09-22] MEDS: ATIVAN PO PRN (09:17)
[2016-09-22] MEDS: XANAX PO PRN ×2 (09:40→21:38)
[2016-09-22] MEDS: LEVAQUIN 500 MG/D5W 100 ML IV SCH ×2 (11:09→13:24)
[2016-09-22] MEDS: SODIUM CHLORIDE 0.9% INJ SCH (11:09)
[2016-09-22] MEDS: PROTONIX IV SCH ×2 (11:09→13:25)
--- NOTE | 2016-09-22 12:38 | PROGRESS NOTE ---
DATE: 09/22/2016 SUBJECTIVE: Ms. Lund is breathing better. She states her voice still is some times hoarse, but then it will clear. She is eating. A little stronger. Appears the swelling has gone down a little bit in the left arm. OBJECTIVE: Temperature 98 degrees, pulse 89, respirations 20, blood pressure 98/58. Lungs are clear in all lung jaffe. Cardiovascular: Regular rhythm and rate without murmur or S3. Abdomen is soft. Skin is warm and dry. Good urine output. Yesterday, she had, I believe, 950 mL. LABORATORY DATA: Lab reviewed from this morning: Electrolytes from yesterday reviewed, so we will probably repeat her CBC, check white count again tomorrow. Hematocrit was 38 back on 09/19/2016. Renal function looks good. Continue to diurese. Cardiac enzymes unremarkable. Chest x-ray from [id number]. No interval improvement. ASSESSMENT AND PLAN: 1. Pulmonary venous hypertension. fluid volume overload, diastolic and systolic dysfunction. Continues to diurese. Renal function seems to be holding stable. She is diuresing well. She has underlying chronic obstructive pulmonary disease. 2. Stage IV breast cancer with chronic lymph edema in the left arm. I think the swelling has gone down some. 3. P.o. intake improved. Nutrition improved. 4. As far as home situation, I would continue to treat her sacral decubitus. She will need to go home with hospice, and I think that is what the family desires. Plan on checking a chest x- ray again tomorrow and check electrolytes and CBC. We will make sure that we have checked her thyroid.
[2016-09-22] MEDS: SANTYL OINT TOP SCH (15:39)
[2016-09-23 01:56] LABS: INR 1.13
[2016-09-23] MEDS: VANCOMYCIN 1,400 MG in NS 250 ML IV SCH (02:58)
[2016-09-23] MEDS: DUONEB (A & A) INH SCH ×6 (03:04→23:04)
[2016-09-23] MEDS: KLOR-CON PO SCH ×2 (08:29→20:50)
[2016-09-23] MEDS: SANTYL OINT TOP SCH (08:29)
[2016-09-23] MEDS: LASIX IV SCH ×2 (08:29→20:50)
--- NOTE | 2016-09-23 08:47 | PROGRESS NOTE ---
DATE: 09/23/2016 SUBJECTIVE: Ms. Lund is feeling better. Still gets short of breath talking and at times has trouble with air exchange. Her voice sounds better. She feels a little stronger. PHYSICAL EXAMINATION: Vital Signs: Temperature 97.8, pulse 90, respirations 20, blood pressure 103/54. Lungs: Lungs with scattered rhonchi and there is some end-expiratory wheezing throughout the lungs still but hear air sounds in all lung jaffe. Cardiovascular Examination: Regular rhythm and rate without murmur or S3. Abdomen: Soft. Skin: Is warm and dry. Is and Os: Good urine output. LAB: Elevated white count from the . We will recheck that. Hematocrit 38. Chemistries, we will recheck as well. I have been supplementing potassium. ASSESSMENT AND PLAN: 1. Pulmonary venous hypertension, volume overload, diastolic and systolic dysfunction. Continue diuresis. Renal function appears to be holding stable. 2. Stage IV breast cancer, chronic lymphedema in the left arm. 3. Oral intake is improving. 4. General weakness and deconditioning seems to be improving some. I think we can try and move her to the floor soon. We need to try and get her catheter out but we will have to wait until she can get up. Will continue physical therapy for that. Her breathing is still marginal. Continue diuresis. She is getting potassium chloride ER 20 mEq twice a day, vancomycin. She is on Levaquin. Getting Protonix 40 mg intravenous daily, Lasix 40 mg intravenous twice a day. We will check electrolytes and chest x-ray again in the morning.
[2016-09-23] MEDS: XANAX PO PRN ×2 (09:05→22:25)
[2016-09-23] MEDS: LEVAQUIN 500 MG/D5W 100 ML IV SCH (12:12)
[2016-09-23] MEDS: PROTONIX IV SCH (12:12)
[2016-09-23] MEDS: SODIUM CHLORIDE 0.9% INJ SCH (12:12)
[2016-09-23] MEDS: NORCO-5 PO PRN (22:24)
[2016-09-24] MEDS: DUONEB (A & A) INH SCH ×5 (03:15→23:22)
[2016-09-24] MEDS: ATIVAN PO PRN (03:52)
[2016-09-24 07:36] LABS: INR 1.04
[2016-09-24 07:57] LABS: AGAP 4; BUN 19 mg/dL (8-22); CALCIUM 8.1 mg/dL (8.8-10.2); CHLORIDE 95 mmol/L (98-107); COSMO 285; MAGNESIUM 1.8 mg/dL (1.5-2.7); POTASSIUM 5.1 mmol/L (3.5-5.1); SODIUM 142 mmol/L (136-145); TCO2 43 mmol/L (25-35)
--- NOTE | 2016-09-24 08:01 | Diag Imaging Result Document ---
PROCEDURE NAME: CHEST-PORTABLE - 09/24/2016 AP PORTABLE CHEST AT 0500 HOURS: FINDINGS: There are bilateral pleural effusions. There is interstitial pulmonary edema and bilateral perihilar alveolar edema. There appears to be more pleural fluid, particularly on the right, than on 09/20/2016 otherwise, there has been no significant change. IMPRESSION: Pulmonary edema and pleural effusions.
[2016-09-24] MEDS: KLOR-CON PO SCH ×2 (09:36→20:45)
[2016-09-24] MEDS: LASIX IV SCH ×2 (09:36→20:46)
[2016-09-24] MEDS: SANTYL OINT TOP SCH (09:36)
--- NOTE | 2016-09-24 10:07 | PROGRESS NOTE ---
DATE: 09/24/2016 SUBJECTIVE: Ms. Lund is doing better. Breathing is better. She wants to go home. OBJECTIVE: Vital signs: Temperature 98.2 degrees, pulse 87, respirations 25, blood pressure 114/71. HEENT: Pupils are equal, round, react to light and accommodation. Oral and nasal mucosa unremarkable. Conjunctivae pink. Sclerae clear. Tympanic membranes intact. Neck: Supple without adenopathy or thyromegaly. CVP less than 6 cm. Intake and output: Urine output about 600 mL. LABS: Reviewed. Sodium 142, potassium 5.0, chloride 95, bicarb 43, BUN 19, creatinine 0.9, calcium 8.1. Note, white count is still a little elevated. REVIEW OF ORDERS: Still on vancomycin and Levaquin. I think we can move her to the floor. ASSESSMENT AND PLAN: 1. Stage IV breast cancer. 2. Pulmonary venous hypertension, volume overload. She is diuresing well. Breathing has improved. Gas exchange and air exchange improved. 3. Oral intake is improving. The plan is to send her home with hospice. We will get a hospice evaluation to see when we can do that. She is concerned about her clothes at [facility] and will see if we can get everything arranged for her.
[2016-09-24] MEDS: LEVAQUIN 500 MG/D5W 100 ML IV SCH (14:04)
[2016-09-24] MEDS: PROTONIX IV SCH (14:05)
[2016-09-24] MEDS: XANAX PO PRN (14:05)
[2016-09-24] MEDS: VANCOMYCIN 1,400 MG in NS 250 ML IV SCH (16:00)
[2016-09-25] MEDS: DUONEB (A & A) INH SCH ×6 (03:29→23:04)
[2016-09-25 06:50] LABS: INR 1.03; PROTIME 10.9 Seconds (9.2-11.7)
[2016-09-25] MEDS: LASIX IV SCH ×2 (08:37→21:09)
[2016-09-25] MEDS: KLOR-CON PO SCH ×2 (08:40→21:09)
--- NOTE | 2016-09-25 14:43 | PROGRESS NOTE ---
DATE: 09/25/2016 SUBJECTIVE: Patient is feeling fine. Denies any complaint. She expressed her desire to go home. OBJECTIVE: Vital Signs: Temperature 97.9, heart rate 82, respiratory rate 16. Blood pressure 125/57, O2 saturation 94% on 3 L nasal cannula. General Examination: This is a chronically ill- looking, frail, 76-year-old female lying in bed, in no acute distress. HEENT: Head is normocephalic, atraumatic. Anicteric sclerae, pale conjunctivae. Neck: Supple. No JVD. No adenopathy. No thyromegaly. Cardiovascular: S1, S2 heard. No murmurs, gallops, or rubs. Regular rate and rhythm. Respiratory: Clear bilaterally to auscultation. No work of breathing or using accessory muscles. Abdomen: Soft, nontender to palpation. Bowel sounds present. No organomegaly. Extremities: Extensive bruising on the right arm and forearm with extensive lymphedema on the left arm with too numerous cutaneous nodules on back. Shows some stage III decubitus ulcers. Neurological: Patient is awake and moves 4 extremities. LABORATORY DATA: None. ASSESSMENT AND PLAN: 1. Stage IV breast cancer. 2. Pulmonary venous hypertension. 3. Volume overload. Patient has been evaluated by the hospice team and the plan is to send her tomorrow morning. pest control worker has been already notified. In the meantime, we will keep this patient comfortable. MTDD
[2016-09-25] MEDS: PROTONIX IV SCH (14:58)
[2016-09-25] MEDS: SODIUM CHLORIDE 0.9% INJ SCH (14:58)
[2016-09-25] MEDS: SANTYL OINT TOP SCH (14:58)
[2016-09-25] MEDS: LEVAQUIN 500 MG/D5W 100 ML IV SCH (14:59)
[2016-09-26] MEDS: VANCOMYCIN 1,400 MG in NS 250 ML IV SCH (03:10)
[2016-09-26] MEDS: DUONEB (A & A) INH SCH ×3 (03:33→11:26)
[2016-09-26] MEDS: KLOR-CON PO SCH (08:56)
[2016-09-26] MEDS: SANTYL OINT TOP SCH (08:57)
[2016-09-26] MEDS: LASIX IV SCH (08:57)
--- NOTE | 2016-09-26 11:35 | DISCHARGE SUMMARY ---
ADMISSION DATE: 09/18/2016 DISCHARGE DATE: 09/26/2016 CONSULTATIONS: Dr. David Conley with Pulmonology. Dr. Sarah Pike with Cardiology. DISCHARGE DIAGNOSES: 1. Respiratory failure secondary to underlying chronic obstructive pulmonary disease along with metastatic disease. 2. Metastatic breast cancer, aware; going home on hospice. 3. Paroxysmal atrial fibrillation history. 4. Pulmonary hypertension. 5. Volume overload. PERTINENT PROCEDURES: Chest x-ray showed overall worsening of pleural effusions , pulmonary edema, and cardiomegaly. Followup chest x-ray shows pulmonary edema and pleural effusion. HOSPITAL COURSE: Ms. Lund is a 76-year-old female who has been admitted a few times within the last month to month and a half here at the hospital with similar problems, respiratory failure with underlying COPD, on chronic O2. She presented from [facility] with slow oxygenation, decreased responsiveness. Her ABG was taken in the ED and showed significant respiratory acidosis with CO2 retention and over oxygenation. She was placed on BiPAP. Her chest x- ray did show cardiomegaly with pulmonary edema and bilateral pleural effusions, right was worse than the left. White count was 20. The patient was transferred to the ICU and started on empiric antibiotics, bronchodilators with a Pulmonary and Cardiology consults. Dr. Pike did not believe that this was related to systolic congestive heart failure and most likely was not related to diastolic heart failure. It did appear that the respiratory failure was secondary to respiratory depression secondary to severe underlying COPD on top of her metastatic disease within the chest. Patient was made a DNR. She was given a poor prognosis. Dr. Conley also agreed with DNR and a poor prognosis. He did add steroids, as well as diuresis from Cardiology. The patient did receive an evaluation from hospice. She has agreed to go home on hospice at this time with family. Ms. Lund was moved out of the ICU. Her breathing improved. Her gas exchange as well as her air exchange had improved. Her oral intake was improving. She is appropriate for discharge home today with hospice. VITAL SIGNS: At time of discharge, temperature is 97.9 degrees, heart rate 83, respirations 16, blood pressure 121/83, O2 is 94% on 3 L nasal cannula. DISCHARGE DIET: GI soft with Ensure with each meal. DISCHARGE MEDICATIONS: 1. Paxil 40 mg p.o. daily. 2. Spiriva 1 puff inhaled RT daily. 3. Ventolin inhaler 2 puffs inhaled RT 4 times a day. 4. Colace 100 mg p.o. daily. 5. Medrol 4 mg p.o. t.i.d. 6. Santyl ointment 1 application topical to decubitus ulcer on sacrum. 7. DuoNeb 3 mL inhaled q.4 hours p.r.n. 8. [place] 5 one each p.o. q.4 hours p.r.n. 9. Xanax 1 mg p.o. b.i.d. p.r.n. FOLLOWUP: The patient is being discharged home with hospice, with [facility]. She will be going home with family. Time spent discharging this patient is 36 minutes Dictated by LUBA Chapa for Casa Blair MD MTDD
[2016-09-26] MEDS ORDERED: HEPARIN ONE (12:16)
[2016-09-26 12:49] VITALS: BP 115/80
== END 2016-09-26 14:20 | disposition hospice, home (50) | DRG 189 ==
LOC: EDBD → ED 09:56 → ICU 12:03 → 3N 09-24 11:41
PROVIDERS: ATTEND Internal Medicine
DX: J96.22 Acute and chronic respiratory failure with hypercapnia (principal); L89.153 Pressure ulcer of sacral region, stage 3; I11.0 Hypertensive heart disease with heart failure; C79.89 Secondary malignant neoplasm of other specified sites; I50.32 Chronic diastolic (congestive) heart failure; J44.1 Chronic obstructive pulmonary disease with (acute) exacerbation; I27.2 Other secondary pulmonary hypertension; J96.21 Acute and chronic respiratory failure with hypoxia; Z99.81 Dependence on supplemental oxygen; I87.8 Other specified disorders of veins; Z87.891 Personal history of nicotine dependence; Z17.0 Estrogen receptor positive status [ER+]; Z66 Do not resuscitate; C50.912 Malignant neoplasm of unspecified site of left female breast; K21.9 Gastro-esophageal reflux disease without esophagitis; Z79.811 Long term (current) use of aromatase inhibitors; Z79.899 Other long term (current) drug therapy; Z79.01 Long term (current) use of anticoagulants; I89.0 Lymphedema, not elsewhere classified; R62.7 Adult failure to thrive; I48.0 Paroxysmal atrial fibrillation
CPT/HCPCS: 71010; 80048; 80053; 80202; 81001; 82550; 82805; 83605; 83735; 83880; 84484; 85025; 85610; 87040; 87070; 87077; 87081; 87088; 87186; 87205; 87430; 87804; 93005; 94640; 94660; 94761; 94762; 96365; 96375; C9113; J1630; J1940; J2060; J3370; J7030; J7050; S0164